=== PATIENT | female | born 1990 | race African-American/Black ===

== ENCOUNTER 2016-06-11 19:54 | Outpatient (CLI) | payer OTHER ==
[~2016-06-11] VITALS: Ht 165.1 cm; Wt 111.0 kg
[~2016-06-11 19:54] MED LIST: FLEXERIL10 MG PO; IBUPROFEN800 MG PO; MOBIC15 MG PO; NAPROSYN500 MG PO; PRENATA CHEWAB1 EACH PO; ULTRAM50 MG PO
[2016-06-11] MEDS ORDERED: PRENATAL TABLE1 EAC3 PO (20:30)
[2016-06-11 20:34] VITALS: BP 122/69
== END 2016-06-11 22:00 | disposition home or self-care (01) ==
LOC: LDRP-OP → 2WEST 19:55 → LDRP-OP 07-23 22:27
DX: O47.1 False labor at or after 37 completed weeks of gestation (principal); O99.89 Other specified diseases and conditions complicating pregnancy, childbirth and the puerperium; Z3A.37 37 weeks gestation of pregnancy
CPT/HCPCS: 59025; G0378

== ENCOUNTER 2016-06-25 08:05 | Inpatient (IN) | payer OTHER ==
[2016-06-25] VITALS (18 sets, daily range): BP systolic 97–139; BP diastolic 54–78
[~2016-06-25] VITALS: Ht 167.6 cm; Wt 110.0 kg
[~2016-06-25 08:05] MED LIST changes: +PRENATAL TABLE1 EAC3 PO
[2016-06-25 09:08] LABS: EOSINOPHIL (%) 1.2 % (0-5); EOSINOPHIL COUNT 0.1 K/uL (0-0.3); HEMATOCRIT 36.1 % (36.0-46.0); IMMATURE GRANULOCYTE (%) 1.7 % (0.0-0.7); IMMATURE GRANULOCYTE COUNT 0.2 K/uL; LYMPHOCYTE COUNT 2.2 K/uL (1.0-2.8); MCH 25.4 PG (29.0-34.0); MCHC 32.7 G/DL (30.0-36.0); MCV 77.8 FL (83-99); MEAN PLAT.VOLUME 10.9 uM^3 (9.5-12.4); MONOCYTE (%) 10.6 % (3-12); NEUTROPHIL (%) 61.7 % (45-76); NEUTROPHIL COUNT 5.6 K/uL (1.8-6.4); PLATELET COUNT 258 K/uL (156-360); RBC DIS.WIDTH-CV 15.3 % (11.8-14.6); RBC DIS.WIDTH-SD 42.7 % (39-53); RED BLOOD COUNT 4.64 M/uL (3.80-5.20); WHITE BLOOD COUNT 9.1 K/uL (4.1-10.2)
[2016-06-26 07:27] VITALS: BP 121/60
[2016-06-26 08:16] LABS: EOSINOPHIL (%) 1.1 % (0-5); EOSINOPHIL COUNT 0.1 K/uL (0-0.3); HEMATOCRIT 30.7 % (36.0-46.0); IMMATURE GRANULOCYTE (%) 0.8 % (0.0-0.7); IMMATURE GRANULOCYTE COUNT 0.1 K/uL; LYMPHOCYTE COUNT 2.5 K/uL (1.0-2.8); MCH 24.8 PG (29.0-34.0); MCHC 31.6 G/DL (30.0-36.0); MCV 78.5 FL (83-99); MONOCYTE (%) 16.6 % (3-12); MONOCYTE COUNT 1.8 K/uL (0-0.8); NEUTROPHIL (%) 58.2 % (45-76); NEUTROPHIL COUNT 6.3 K/uL (1.8-6.4); NRBC (%) 0.7 /100 WBC (0-0); PLATELET COUNT 211 K/uL (156-360); RBC DIS.WIDTH-CV 15.3 % (11.8-14.6); RBC DIS.WIDTH-SD 43.7 % (39-53); RED BLOOD COUNT 3.91 M/uL (3.80-5.20); WHITE BLOOD COUNT 10.9 K/uL (4.1-10.2)
[2016-06-26 14:49] VITALS: BP 104/53
[2016-06-26 22:55] VITALS: BP 90/53
[2016-06-27 07:45] VITALS: BP 117/69
[2016-06-27] MEDS ORDERED: IBUPROFEN800 MG PO (12:46)
[2016-06-27] MEDS ORDERED: FERROUS GLUCON324 MG PO (12:47)
== END 2016-06-27 14:35 | disposition home or self-care (01) | DRG 775 ==
LOC: LDRP-OP 08:05 → 2WEST 08:06 → LDRP-OP 10:18 → 2WEST 17:06 → LDRP-OP 07-30 22:28
PROVIDERS: Advanced Practice Midwife
DX: O70.1 Second degree perineal laceration during delivery (principal); D62 Acute posthemorrhagic anemia; O69.81X0 Labor and delivery complicated by cord around neck, without compression, not applicable or unspecified; Z3A.39 39 weeks gestation of pregnancy; O99.02 Anemia complicating childbirth; Z37.0 Single live birth; Z68.34 Body mass index [BMI] 34.0-34.9, adult
CPT/HCPCS: 85025; J0595; J7120; Q0169